=== PATIENT | female | born 1975 ===

== ENCOUNTER 2017-02-26 14:55 | Inpatient (IN) | payer BC ==
[2017-02-26] MEDS ORDERED: DEXTROSE 5%-LACTATED RINGERS 500 ML IV SCH (16:00)
[2017-02-26 16:03] LABS: BASOPHIL 0.2 % (0-2.0); EOSINOPHIL 0.3 % (0-4.5); MCH 30.3 pg (25.7-33.7); MCHC 34.1 g/dl (32.0-36.0); MEAN CELL VOLUME 88.9 fl (80-96); MEAN PLT VOLUME 10.7 fl (7.5-11.1); NEUTROPHILS 80.5 % (42.8-82.8); PLATELET COUNT 184 K/MM3 (134-434); RDW 14.5 % (11.6-15.6); WHITE BLOOD COUNT 9.4 K/mm3 (4.0-10.0)
[2017-02-26 16:05] VITALS: BMI 30.5
[2017-02-26 16:30] LABS: CALCIUM 8.3 mg/dL (8.5-10.1); COCKROFT - GAULT 173.06; CREATININE 0.6 mg/dL (0.55-1.02)
[2017-02-26 16:33] LABS: INR 0.9 (0.82-1.09); PROTHROMBIN TIME (PATIENT) 9.9 SEC (9.98-11.88)
[2017-02-26 16:36] LABS: ACTIVATED PTT 26.9 SECONDS (26.9-34.4)
[2017-02-26] MEDS ORDERED: DEXTROSE 5%-LACTATED RINGERS 500 ML IV ONE (17:01)
[2017-02-26] MEDS ORDERED: DINOPROSTONE 10 MG VAGINAL SUPPOSITORY VG ONE (17:42)
[2017-02-26] MEDS: DEXTROSE 5%-LACTATED RINGERS 1,000 ML IV SCH ×2 (17:55→19:01)
[2017-02-26] MEDS ORDERED: TUBERCULIN PPD 5 TU/0.1ML SYRINGE (IN PATIENT USE ONLY) ID ONE (18:00)
--- NOTE | 2017-02-26 18:18 | HP ---
Past Medical History - Primary Care Physician PCP:: Henri Daniel - Admission Chief Complaint: 39.5 weeks , ama, ivf , anti-k antibody positve, for cervidil induction History of Present Illness: 41 yo f , edc by [facility] 02/28/17 39.5 weeks with ama, ivf , anti dolores antibody, admitted for cervidil induction ,rba discussed , clp , vx 3 mi, fhr cat 1 History Source: Patient Limitations to Obtaining History: No Limitations - Past Medical History ...: 2 ...Para: 1 ...Term: 1 ...LMP: 06/09/16 ... Weeks Gestation by Dates: 37.3 ...EDC by Dates: 03/17/17 ...EDC by Sono: 02/28/17 Infectious Disease: Yes: Herpes Zoster (txed with acyclovir during ) - Past Surgical History Hx Myomectomy: No Hx Transabdominal Cerclage: No - Smoking History Smoking history: Never smoked Have you smoked in the past 12 months: No - Alcohol/Substance Use Hx Alcohol Use: No - Social History Usual Living Arrangement: Yes: With Spouse History of Recent Travel: No Home Medications - Allergies Allergies/Adverse Reactions: Allergies Allergy/AdvReac Type Severity Reaction Status Date / Time No Known Allergies Allergy Verified 02/26/17 15:25 - Home Medications Home Medications: Ambulatory Orders Acyclovir [Zovirax -] 400 mg PO BID 02/26/17 Vit/Iron Fumarate/FA [ Tablet] 1 tab PO DAILY 02/26/17 Review of Systems - Review of Systems Constitutional: reports: No Symptoms Eyes: reports: No Symptoms HENT: reports: No Symptoms Neck: reports: No Symptoms Cardiovascular: reports: No Symptoms Respiratory: reports: No Symptoms Gastrointestinal: reports: No Symptoms Genitourinary: reports: No Symptoms Breasts: reports: No Symptoms Reported Musculoskeletal: reports: No Symptoms Integumentary: reports: No Symptoms Neurological: reports: No Symptoms Endocrine: reports: No Symptoms Hematology/Lymphatic: reports: No Symptoms Psychiatric: reports: No Symptoms Physical Exam - Maternity Vital Signs: Vital Signs Temperature 97.6 F 02/26/17 16:00 Pulse Rate 92 H 02/26/17 17:00 Respiratory Rate 20 02/26/17 17:00 Blood Pressure 134/80 02/26/17 17:00 O2 Sat by Pulse Oximetry (%) 99 02/26/17 15:45 - Abdominal Exam/OB Fundal Height: 38 Number of Fetuses: Single Presentation: Vertex Contractions: No Intensity: Unaware Monitor Mode: External Heart Rate Location: [facility] Category: I Accelerations: Uniform - Vaginal Exam/OB Vaginal Bleediing: No Speculum Exam: No Dilatation (cm): closed Effacement (%): o Amniotic Membrane Status: Intact Presentation: Vertex/Position Station: -3 - Physical Exam Musculoskeletal: Yes: WNL Extremities: Yes: WNL Edema: LLE: 1+, RLE: 1+ Deep Tendon Reflex Grade: Normal +2 ...Motor Strength: WNL Psychiatric: Yes: WNL - Labs Lab Results: CBC, BMP 02/26/17 15:40 02/26/17 15:40 Hemorrhage Risk Assessment - Risk Factors Medium Risk Factors: Yes: None Risk Score: 1 Risk Level: Medium Risk Problem List - Problems (1) with 39 completed weeks gestation Code(s): Z3A.39 - 39 WEEKS GESTATION OF (2) Advanced maternal age (AMA) in Code(s): [id number] - (3) Conceived by in vitro fertilization Code(s): Z78.9 - OTHER SPECIFIED HEALTH STATUS (4) Dolores isoimmunization during Code(s): O36.1989 - MATERNAL CARE FOR OTH ISOIMMUNIZATION, UNSP TRIMESTER, UNSP Qualifiers: Fetus number: single or unspecified fetus Trimester: third trimester Qualified Code(s): O36.1930 - Maternal care for other isoimmunization, third trimester, not applicable or unspecified Assessment/Plan admit for cervidil induction, rba discussed, agreed
--- NOTE | 2017-02-26 18:20 | PN ---
Progress Note (short form) - Note Progress Note: cx closed ,non effaced, -3 mi, fhr cat 1, no contraction, cervidil inserted at 545 pm
[2017-02-26] MEDS ORDERED: ACETAMINOPHEN 325 MG TABLET (FP) PO ONE (19:45)
[2017-02-26] MEDS ORDERED: BUTORPHANOL TARTRATE 1 MG/ML VIAL IVPUSH ONE (23:01)
[2017-02-27] MEDS ORDERED: BUTORPHANOL TARTRATE 1 MG/ML VIAL IVPB ONE (00:45)
[2017-02-27] MEDS: DEXTROSE 5%-LACTATED RINGERS 1,000 ML IV SCH ×2 (01:00→08:18)
[2017-02-27] MEDS ORDERED: AMPICILLIN - 100 ML IVPB ONE (02:00)
[2017-02-27] MEDS: AMPICILLIN - 100 ML IVPB SCH ×4 (06:20→17:33)
--- NOTE | 2017-02-27 08:38 | PN ---
Progress Note (short form) - Note Progress Note: 7 am cx 2 cm 80 vx -2 mi, fhr cat 1 , cervidil has removed , will start pitocin, rba discussed Problem List - Problems (1) with 39 completed weeks gestation Code(s): Z3A.39 - 39 WEEKS GESTATION OF (2) Advanced maternal age (AMA) in Code(s): [id number] - (3) Conceived by in vitro fertilization Code(s): Z78.9 - OTHER SPECIFIED HEALTH STATUS (4) [place] isoimmunization during Code(s): O36.1990 - MATERNAL CARE FOR OTH ISOIMMUNIZATION, UNSP TRIMESTER, UNSP Qualifiers: Fetus number: single or unspecified fetus Trimester: third trimester Qualified Code(s): O36.1930 - Maternal care for other isoimmunization, third trimester, not applicable or unspecified
[2017-02-27] MEDS ORDERED: OXYTOCIN 15 UNITS/ LR 250 ML 250 ML IVPB SCH (08:45)
[2017-02-27] MEDS ORDERED: ELECTROLYTE-148 SOLN 500 ML IV SCH (10:30)
[2017-02-27] MEDS ORDERED: ONDANSETRON 4 MG/2 ML VIAL IVPB ONE (10:30)
[2017-02-27] MEDS: ELECTROLYTE-148 SOLN 500 ML IV SCH ×2 (11:00→13:35)
[2017-02-27] MEDS ORDERED: FENTANYL/BUPIVACAINE/NS/PF - PCEA - 50 ML DISP.SYRIN EP SCH (11:30)
[2017-02-27] MEDS: PRENATAL VITAMINS W/ FOLIC ACID TABLET (FP) PO SCH (12:04)
--- NOTE | 2017-02-27 14:21 | PN ---
Progress Note (short form) - Note Progress Note: cx 4 cm 80 vx -1 mi, fhr cat 1, arom, mec stain af , contraction q 2 to 3 min Problem List - Problems (1) with 39 completed weeks gestation Code(s): Z3A.39 - 39 WEEKS GESTATION OF (2) Advanced maternal age (AMA) in Code(s): [id number] - (3) Conceived by in vitro fertilization Code(s): Z78.9 - OTHER SPECIFIED HEALTH STATUS (4) Dolores isoimmunization during Code(s): O36.1989 - MATERNAL CARE FOR OTH ISOIMMUNIZATION, UNSP TRIMESTER, UNSP Qualifiers: Fetus number: single or unspecified fetus Trimester: third trimester Qualified Code(s): O36.1929 - Maternal care for other isoimmunization, third trimester, not applicable or unspecified
[2017-02-27] MEDS ORDERED: ACETAMINOPHEN 325 MG TABLET (FP) PO ONE (15:45)
[2017-02-27] MEDS: oxyCODONE HCL 5 MG TABLET PO PRN (19:10)
[2017-02-27] MEDS ORDERED: WITCH HAZEL 50% (TUCKS) 40 PAD/JAR PAD TP PRN (19:34)
[2017-02-27] MEDS ORDERED: METHYLERGONOVINE MALEATE 0.2 MG/1 ML AMP IM PRN (19:34)
[2017-02-27] MEDS ORDERED: BENZOCAINE 20% 57 GM BOTTLE TP PRN (19:34)
[2017-02-27] MEDS ORDERED: BENZOCAINE 28 GM HEMORRHOIDAL OINTMENT TP PRN (19:34)
[2017-02-27] MEDS ORDERED: BISACODYL 10 MG SUPP.RECT RC PRN (19:34)
[2017-02-27] MEDS ORDERED: D5W-LR W/ 20 UNITS OXYTOCIN 1,000 ML IV SCH (19:45)
[2017-02-27 19:50] LABS: VENOUS PH 7.3 (7.32-7.42)
[2017-02-27 19:51] LABS: VENOUS BLOOD GAS HCO3 21.8 meq/L (19-25)
[2017-02-27] MEDS: SENNOSIDES/DOCUSATE COMBO (SENNA PLUS) TABLET (UD) PO PRN (22:19)
[2017-02-28] MEDS: ACETAMINOPHEN 325 MG TABLET (FP) PO PRN ×4 (00:41→19:12)
[2017-02-28] MEDS: oxyCODONE HCL 5 MG TABLET PO PRN ×4 (00:42→19:14)
[2017-02-28] MEDS: IBUPROFEN 600 MG TABLET (FP) PO PRN ×4 (00:42→19:13)
[2017-02-28 08:02] LABS: BASOPHIL 0.1 % (0-2.0); EOSINOPHIL 0.2 % (0-4.5); MCH 30.1 pg (25.7-33.7); MCHC 33.4 g/dl (32.0-36.0); MEAN CELL VOLUME 89.9 fl (80-96); MEAN PLT VOLUME 10.3 fl (7.5-11.1); NEUTROPHILS 81.7 % (42.8-82.8); PLATELET COUNT 155 K/MM3 (134-434); RDW 14.2 % (11.6-15.6); WHITE BLOOD COUNT 15.2 K/mm3 (4.0-10.0)
[2017-02-28] MEDS: FERROUS SO4 325 MG TABLET (FP) PO SCH ×2 (09:19→16:49)
[2017-02-28] MEDS: PRENATAL VITAMINS W/ FOLIC ACID TABLET (FP) PO SCH (09:19)
[2017-02-28] MEDS ORDERED: PRENATAL VITAMINS W/ FOLIC ACID TABLET (FP) PO SCH (10:00)
--- NOTE | 2017-02-28 10:04 | PN ---
Progress Note (short form) - Note Progress Note: ppd 1 doing well, no excess vagianl bleeding, voids ok CBC, BMP 02/28/17 06:00 02/26/17 15:40 Last Vital Signs Temp Pulse Resp BP Pulse Ox 97.7 F 94 H 18 115/60 100 02/28/17 09:43 02/28/17 09:43 02/28/17 09:43 02/28/17 09:43 02/27/17 19:45 abdomen soft, uterus firm, non tender,no cva lochia mild , pernium clean impression ppd 1 afebrile , doing well plan ambulate, plan for d/c home in am Problem List - Problems (1) with 39 completed weeks gestation Code(s): Z3A.39 - 39 WEEKS GESTATION OF (2) Advanced maternal age (AMA) in Code(s): [id number] - (3) Conceived by in vitro fertilization Code(s): Z78.9 - OTHER SPECIFIED HEALTH STATUS (4) [place] isoimmunization during Code(s): O36.1990 - MATERNAL CARE FOR OTH ISOIMMUNIZATION, UNSP TRIMESTER, UNSP Qualifiers: Fetus number: single or unspecified fetus Trimester: third trimester Qualified Code(s): O36.1930 - Maternal care for other isoimmunization, third trimester, not applicable or unspecified
[2017-02-28 21:29] VITALS: TEMP 97.5
[2017-03-01] MEDS: ACETAMINOPHEN 325 MG TABLET (FP) PO PRN ×3 (00:46→14:56)
[2017-03-01] MEDS: IBUPROFEN 600 MG TABLET (FP) PO PRN ×3 (00:48→14:57)
[2017-03-01] MEDS: SENNOSIDES/DOCUSATE COMBO (SENNA PLUS) TABLET (UD) PO PRN (00:49)
[2017-03-01] MEDS: oxyCODONE HCL 5 MG TABLET PO PRN ×3 (00:50→14:58)
--- NOTE | 2017-03-01 07:24 | PN ---
Post Progress Note - Subjective Subjective: 41 yo P2 now voiding, ambulating, tolerating regular diet Post Day: 2 Type of Delivery: Vital Signs: Vital Signs Temperature 97.5 F L 02/28/17 21:25 Pulse Rate 86 02/28/17 21:25 Respiratory Rate 18 02/28/17 21:25 Blood Pressure 131/75 02/28/17 21:25 O2 Sat by Pulse Oximetry (%) 100 02/27/17 19:45 Breast Exam: Yes: Soft Uterus: Yes: Fundus Firm, Non-tender Abdomen/GI: Yes: Abdomen soft, Tolerating PO Lochia: Yes: Rubra Lochia, amount: Small Extremities: Yes: Calves non-tender Activity: Ambulating - Labs Labs: CBC WBC 15.2 K/mm3 (4.0-10.0) H D 02/28/17 06:00 RBC 4.14 M/mm3 (3.60-5.2) 02/28/17 06:00 Hgb 12.5 GM/dL (10.7-15.3) 02/28/17 06:00 Hct 37.2 % (32.4-45.2) 02/28/17 06:00 MCV 89.9 fl (80-96) 02/28/17 06:00 MCHC 33.4 g/dl (32.0-36.0) 02/28/17 06:00 RDW 14.2 % (11.6-15.6) 02/28/17 06:00 Plt Count 155 K/MM3 (134-434) 02/28/17 06:00 MPV 10.3 fl (7.5-11.1) 02/28/17 06:00 Neutrophils % 81.7 % (42.8-82.8) 02/28/17 06:00 Lymphocytes % 10.9 % (8-40) 02/28/17 06:00 Monocytes % 7.1 % (3.8-10.2) 02/28/17 06:00 Eosinophils % 0.2 % (0-4.5) 02/28/17 06:00 Basophils % 0.1 % (0-2.0) 02/28/17 06:00 Assessment/Plan 41yo P2 now s/p doing well VSS, Afibrile Desires Circumcision for baby Rh+ Plan D/C today NPV for 6 weeks RTO 6wks
[2017-03-01] MEDS: FERROUS SO4 325 MG TABLET (FP) PO SCH ×2 (07:54→16:55)
[2017-03-01 08:28] VITALS: BP 130/82; PULSE 84
[2017-03-01] MEDS: PRENATAL VITAMINS W/ FOLIC ACID TABLET (FP) PO SCH (10:03)
== END 2017-03-01 18:20 | disposition home or self-care (01) | DRG 775 ==
LOC: JLDR 14:55 → J3W 02-27 20:50
PROVIDERS: ADMIT Obstetrics & Gynecology; ATTEND Obstetrics & Gynecology
PROC: 3E0P7GC Introduction of Other Therapeutic Substance into Female Reproductive, Via Natural or Artificial Opening (ICD-10-PCS; 2017-02-26)
PROC: 10E0XZZ Delivery of Products of Conception, External Approach (ICD-10-PCS; principal; 2017-02-27)
DX: O80 Encounter for full-term uncomplicated delivery (principal); Z3A.39 39 weeks gestation of pregnancy; Z37.0 Single live birth
CPT/HCPCS: 36415; 59409; 80048; 82803; 85025; 85610; 85730; 86593; 86850; 86870; 86900; 86901; 86902